=== PATIENT | female | born 1935 | race Caucasian/White ===

== ENCOUNTER 2018-09-16 18:47 | Inpatient (IN) | payer OTHER ==
[~2018-09-16] VITALS: Ht 167.6 cm; Wt 70.8 kg
--- NOTE | ~2018-09-16 | CON ---
[address] [address] CONSULTATION Name: MAXWELL COX Room: [address] IN M.R.#: [id number] Admission: 09/16/18 Attend Phys: Robbin Mccord MD Discharge: Date of : 35 Report #: [id number] THIS REPORT FOR: //name// CC: Robbin Bales DATE OF SERVICE: 09/17/2018 HISTORY OF PRESENT ILLNESS: This is an 82-year-old female patient who was evaluated by me for the falls. The history is from the daughter. This daughter does not live with the patient, another daughter lives, but she tells me that the patient has been diagnosed with dementia. She still recognizes the family members, but usually does not have memory for short term events. It looks like that the patient walks and then she collapses. Her dementia is progressing. It does not look like she has that much difficulty with walking. She has some difficulty with walking for a long time. She uses a cane. When I saw the patient, the patient was actually walking with physical therapy with a walker. REVIEW OF SYSTEMS: Indicate that this patient has a history of diabetes and diabetic neuropathy. She also appeared to have depression and she takes Wellbutrin and trazodone. She does take Lyrica for neuropathy. She has underlying dementia for which she takes Aricept. A 14-point review of system was carried out and this was her relevant 14-point review of system. PAST MEDICAL HISTORY: Positive for dementia. FAMILY HISTORY: Negative for early age stroke. SOCIAL HISTORY: She does not drink any alcohol. PHYSICAL EXAMINATION: Indicates she is alert. She is responsive. She can follow simple commands. Her memory is poor, but that is consistent with dementia. No speech difficulty was noticed. Cranial nerve examination appears unremarkable. She does appear to have adequate strength in lower extremities. Reflexes could not be elicited, but position sense is present. She is able to walk with a walker. I could not look at the fundus because she could not cooperate. There does not appear to be any cerebellar sign. Pulses are difficult to feel. She has no edema, cyanosis or jaundice. No thyroid masses present. Blood pressure is 110/48, respirations 16, pulse is 69, temperature is 98.3. No respiratory difficulty or rhonchi was noticed on either side. LABORATORY DATA: White count is 4.7. Sodium is 134. She did have a CT scan of the head, which does not show any acute process. IMPRESSION: The patient gives a history of collapsing [place] [address] CONSULTATION Name: PAULARLEY CLARKNNE Room: [address] IN ..#: [id number] Admission: 09/16/18 Attend Phys: Robbin Mccord MD Discharge: Date of : 35 Report #: [id number] causes. I think she needs to be checked for any postural hypotension, especially because she is on multiple medications, which can affect the autonomic system. We will check an EEG. She may need some further workup. She may have to be monitored on tele. We will see how she does with physical therapy today. All of it was discussed with the family and the patient and they want to proceed with this plan. Thank you very much for this referral. By: [id number] Schofield MD /nt
[2018-09-16 18:48] VITALS: BP 137/51
[2018-09-16] MEDS ORDERED: LYRICA 75 MG CA75 MG PO (19:05)
[2018-09-16] MEDS ORDERED: WELLBUTRIN XL150 MG (19:07)
[2018-09-16] MEDS ORDERED: METFORMIN HCL500 MG (19:24)
[2018-09-16] MEDS ORDERED: SYNTHROID88 MCG (19:24)
[2018-09-16] MEDS ORDERED: DONEPEZIL HCL 55 M1 (19:25)
[2018-09-16] MEDS ORDERED: LOSARTAN POTASS50 MG (19:26)
[2018-09-16] MEDS ORDERED: BACTRIM DS TAB1 EACH (19:26)
[2018-09-16] MEDS ORDERED: TRAZODONE HCL50 MG (19:26)
[2018-09-16] MEDS ORDERED: FLONASE 0.05%50 MCG (19:27)
[2018-09-16 19:45] LABS: HEMATOCRIT 38.4 % (37.0-47.0); HEMOGLOBIN 13.1 gm/dL (12.0-15.0); MCH 30.4 pg (26.0-34.0); MCHC 34.2 g/dL (28.0-37.0); MCV 88.8 fL (80.0-100.0); MPV 9.5 fl. (7.2-11.1); NUCLEATED RBCS 0 /100WBC; PLATELET COUNT* 177 thou/uL (150-400); RBC 4.33 mil/uL (4.20-5.00); RDW-CV 13.5 % (10.5-14.5); WBC 4.7 thou/uL (4.0-11.0)
[2018-09-16 20:04] LABS: ALBUMIN 3.3 g/dL (3.4-5.0); CALCIUM 8.6 mg/dL (8.5-10.1); CREATININE 1.2 mg/dL (0.6-1.3); MAGNESIUM 1.7 mg/dL (1.8-2.4); POTASSIUM 3.9 mmol/L (3.5-5.1); TOTAL BILIRUBIN 0.4 mg/dL (<0.1-1.0); TOTAL PROTEIN 6.7 g/dL (6.4-8.2)
[2018-09-16 20:10] LABS: URINE BILIRUBIN NEGATIVE (Negative); URINE BLOOD NEGATIVE (Negative); URINE CLARITY CLEAR; URINE COLOR YELLOW; URINE GLUCOSE-RANDOM NEGATIVE (Negative); URINE KETONES NEGATIVE (Negative); URINE LEUKOCYTES-REFLEX NEGATIVE (Negative); URINE NITRITE-REFLEX NEGATIVE (Negative); URINE PROTEIN NEGATIVE (Negative); URINE UROBILINOGEN 0.2 E.U./dl (0.2-1.0)
[2018-09-16 20:14] LABS: ABSOLUTE LYMPHOCYTES 0.3 thou/uL (0.8-5.3); ABSOLUTE MONOCYTES 0.2 thou/uL (0.0-1.2); ABSOLUTE NEUTROPHILS 4.2 thou/uL (1.6-8.1); PLATELET ESTIMATE ADEQUATE
[2018-09-16 20:32] LABS: BE 0.4 mmol/L (-2 to +3); PCO2 35.8 mmHg (35.0-45.0); pH 7.445 (7.340-7.450)
--- NOTE | 2018-09-16 22:11 | NUR ---
PT 2 DAUGHTERS AT BEDSIDE
--- NOTE | 2018-09-16 22:42 | NUR ---
PT AND FAMILY UPDATED ON POC
[2018-09-17 00:15] VITALS: BP 129/50
--- NOTE | 2018-09-17 01:53 | NUR ---
PT GOT TO UNIT ABOUT 2330 FROM ER. PT SETTLED AND VITALS STABLE. ADMIT COMPLETE. PT BELONINGS WITH PT AND NOTED. FALL PRECAUTIONS IN PLACE. CALL LIGHT WITHIN REACH. WILL CONITINUE TO MONITOR.
--- NOTE | 2018-09-17 04:39 | NUR ---
PT REMAINED A&Ox4 THROUGHOUT SHIFT. VITALS STABLE. PT IS WEAK AND IS MOD/MAX ASSIST WITH GAITBELT AND WALKER. IV IN L FA PATENT, SL. FALL PRECAUTIONS IN PLACE. HOULRY ROUNDING COMPLETE. CALL LIGHT WITHIN REACH. WILL CONTINUE TO MONITOR.
[2018-09-17 08:00] VITALS: BP 110/48
--- NOTE | 2018-09-17 13:19 | EKG ---
[place] [address] ELECTROCARDIOGRAM REPORT Name: MAXWELL COX Room: [address] ADM IN M.R.#: [id number] Admission: 09/16/18 Attend Phys: Robbin Mccord MD Discharge: Date of : 35 Report #: [id number] THIS REPORT FOR: //name// [facility] ED Test Date: 2018-09-16 Test Time: 19:44:44 Pat Name: MAXWELL COX Department: Room: [facility] Gender: F Accounts Payable Manager: Kathy LO : 1935 Requested By: Juany Cowart Order Number: [id number] MD: Pipo Pascal Measurements Intervals [place] Rate: 64 P: 79 NE: 157 QRS: 64 QRSD: 103 T: 80 QT: 424 QTc: 438 Interpretive Statements Sinus rhythm Probable left atrial enlargement Low voltage, extremity leads No previous ECG available for comparison Electronically Signed On 09-17-2018 13:19:06 BUSINESS ENGLISH INSTRUCTOR by Pipo Pascal [email or web address] <ELECTRONICALLY SIGNED> By: Pipo Pascal MD, [facility] 09/17/18 1319 43 43 Pipo Pascal MD, [facility] /EPI
--- NOTE | 2018-09-17 14:27 | NUR ---
SPOKE WITH PT.AND DAUGHTER,ISAIAH,AT BEDSIDE. PT.ALERT AND ORIENTED. PT.SAID HER DAUGHTER,KEITH, LIVES WITH HER AND HAS FOR ABOUT 7 YRS. THEY MOVED HERE FROM [place] ABOUT 6 MONTHS AGO. PT.SAID SHE USES A CANE AT HOME. HAS A FRONT WHEEL WALKER BUT DOESNT USE. SHE IS INDEPENDENT AT HOME. RECENTLY BEGAN FALLING. SHE SAID SHE DOES NOT CHECK HER BLOOD SUGARS AT HOME, HASN'T FOR A LONG TIME. SHE HAS A GLUCOMETER. SHE THINKS SHE KNOWS WHERE IT IS. DISCUSSED HOME WITH HH VS.SNF DEPENDING ON HOW SHE DOES WITH THERAPIES. GAVE THEM A LIST OF CONTRACTED FACILITIES FOR HER INSURANCE. FIRST CHOICE IS [facility]. REFERRAL FAXED TO ADMISSIONS/[facility]. WILL NEED TO FAX PT/OT NOTES WHEN AVAILABLE.
[2018-09-17 16:42] VITALS: BP 114/49
--- NOTE | 2018-09-17 19:02 | NUR ---
PT ALERT AND ORIENTED X 3. FORGETFUL @ TIMES. DENIES PAIN AND NAUSEA DURING DAY. PT UP WITH SBA- GAIT BELT AND WALKER. DAUGHTER @ BEDSIDE DURING DAY. IVF @ 80 MLS/HR. BED AND CHAIR ALARM IN USE. ABRASION WITH BANDAID NOTED ON RIGHT FOREARM. HOURLY ROUNDS MAINTAINED. CALL LIGHT WITHIN REACH.
[2018-09-17 20:00] VITALS: BP 109/49
[2018-09-18 04:13] LABS: CALCIUM 8.2 mg/dL (8.5-10.1); CREATININE 1.2 mg/dL (0.6-1.3); POTASSIUM 4.1 mmol/L (3.5-5.1)
--- NOTE | 2018-09-18 04:17 | NUR ---
PT REMAINED A&Ox4 THROUGHOUT SHIFT. VITALS STABLE. UP WITH 1 MAX ASSIST WITH GAITBELT AND WALKER. IV IN L FA PATENT, INFUSING. DENIED PAIN. FALL PRECAUTIONS IN PLACE. HOURLY ROUNDING COMPLETE. CALL LIGHT WITHIN REACH. WILL CONTINUE TO MONITOR.
[2018-09-18 08:00] VITALS: BP 115/44
[2018-09-18 11:00] VITALS: BP 106/34
--- NOTE | 2018-09-18 11:28 | NUR ---
1236 ASSUMED CARE OF PATIENT. PLEASE SEE DOCUMENTED ASSESSMENT. PT IS ORIENTED X 4 AND USES CALL LIGHT. FALL PRECAUTIONS DUE TO FALL HISTORY
[2018-09-18 15:59] VITALS: BP 109/51
--- NOTE | 2018-09-18 16:59 | NUR ---
NOTARIZED DPOA/AD FOR PT.THIS AFTERNOON. SHE WAS ALERT AND ORIENTED. DAUGHTER,KEITH AT BEDSIDE AND HELPED HER FILL IT OUT. COPY PLACED ON CHART. ORIGINAL AND 4 COPIES GIVEN. PT.WAITING TO HAVE MRI. [facility] CALLED AND SAID THEY HAVE INSURANCE AUTH FOR PT. TO COME TO A SKILLED BED. THEY CAN ACCEPT HER IN AM. [facility] AT [facility] WILL BE ADMISSIONS PERSON TO CONTACT. DAUGHTER INFORMED WHILE PT.WORKING WITH THERAPY.
--- NOTE | 2018-09-18 17:02 | NUR ---
PATIENT PROGRESSING TOWARDS GOALS. ORIENTED X 4 BUT FORGETFUL. OFF OF IVF. UP WITH GAIT BELT,WALKER AND ASSIST OF 1. BOWELS MOVED. APPETITE GOOD. IN MRI. SEE ORTHOSTATICS. PLAN IS FOR [facility] IN AM
[2018-09-18 20:15] VITALS: BP 103/62
[2018-09-19 02:10] LABS: GLYCOHEMOGLOBIN (HGB A1C) 6.4 % (4.8-5.6)
--- NOTE | 2018-09-19 03:54 | NUR ---
ASSUMED CARE AT START OF SHIFT PT UP IN CHAIR MOST OF SHIFT,UP UP WITH STAND BY ASSIST GAIT STEADY WITH WALKER. NO CONCERNS VOICED, RESTED WELL THROUGHOUT HOURLY ROUNDS. DISCUSSED PLAN OF CARE AND AGREEABLE. WILL CONINTUE WITH PLAN OF CARE AND REPORT CHANGES.
[2018-09-19 09:00] VITALS: BP 131/51
[2018-09-19 12:42] VITALS: BP 131/51
[2018-09-19] MEDS ORDERED: LYRICA 75 MG CA75 MG PO (13:23)
[2018-09-19] MEDS ORDERED: SYNTHROID75 MCG PO (13:24)
[2018-09-19] MEDS ORDERED: CYMBALTA30 MG PO (13:24)
[2018-09-19] MEDS ORDERED: COLACE 100 MG100 MG PO (13:24)
[2018-09-19] MEDS ORDERED: THERA M PLUS T1 EAC2 PO (13:25)
[2018-09-19 14:11] VITALS: BP 131/51
[2018-09-19 14:21] VITALS: BP 131/51
--- NOTE | 2018-09-19 20:30 | NUR ---
I ASSUMED CARE OF THE PATIENT AT 0700. SHE IS ALERT AND ORIENTED X4. DAUGHTERS ARE AT THE BEDSIDE. HOURLY ROUNDING WAS COMPLETED AND PATIENT NEEDS WERE MET. PAIN IS DENIED. SHE WAS TRANSPORTED TO [facility]IA [facility]. REPORT WAS CALLED. SHE WAS TRANSPORTED AT 1620. WILL CONTINUE TO MONITOR.
== END 2018-09-19 14:20 | DRG 552 ==
LOC: M.ERS 18:47 → M.TBA-ER 22:30 → M.ORTHSURG 22:30
PROVIDERS: Family Medicine; Personal Emergency Response Attendant; ADMIT Internal Medicine
DX: M48.061 Spinal stenosis, lumbar region without neurogenic claudication (principal); F02.81 Dementia in other diseases classified elsewhere, unspecified severity, with behavioral disturbance; M47.896 Other spondylosis, lumbar region; R29.6 Repeated falls; F32.9 Major depressive disorder, single episode, unspecified; E11.22 Type 2 diabetes mellitus with diabetic chronic kidney disease; E11.40 Type 2 diabetes mellitus with diabetic neuropathy, unspecified; G30.9 Alzheimer's disease, unspecified; R26.89 Other abnormalities of gait and mobility; R44.1 Visual hallucinations; I12.9 Hypertensive chronic kidney disease with stage 1 through stage 4 chronic kidney disease, or unspecified chronic kidney disease; N18.3 Chronic kidney disease, stage 3 (moderate); E03.9 Hypothyroidism, unspecified; E83.42 Hypomagnesemia; Z79.84 Long term (current) use of oral hypoglycemic drugs; Z79.51 Long term (current) use of inhaled steroids; Z79.899 Other long term (current) drug therapy